=== PATIENT | female | born 1955 ===

== ENCOUNTER → 2025-01-16 | Day surgery (SDC) | payer OTHER ==
[~2025-01-16] VITALS: Ht 172.7 cm; Wt 181.4 kg
[~2025-01-16] MED LIST: Balanced Salt Solution 500 ML OPH SCH; CYMBALTA60 MG PO; Cefuroxime Sodium 5 MG in BALANCED SALT IRRIG SOLN NO.2 0.5 ML,SYRINGE, DISPOSABLE, 10 ... IO SCH; Coumadin10 MG PO; Coumadin5 MG PO; FARXIGA10 M1 PO; GLYBURIDE5 MG PO; JENTADUETO 2.51 EAC2 PO; LIPITOR20 MG PO; Midazolam Hydrochloride 2 MG/2 ML VIAL IV ONE; OFLOXACIN 0.3% 5 ML BOTTLE ONE; OFLOXACIN 0.3% 5 ML BOTTLE OPH SCH; PHENYLEPHRINE/KETOROLAC 4 ML in Balanced Salt Solution 500 ML OPH SCH; POVIDONE IODINE 5% OPHTHALMIC 30 ML BOTTLE OPH ONE; POVIDONE IODINE 5% OPHTHALMIC 30 ML BOTTLE OPH SCH; Phenylephrine Hydrochloride 2 ML BOT OPH ONE; Phenylephrine Hydrochloride 2 ML BOT OPH SCH; Proparacaine Hydrochloride 15 ML BOT OPH ONE; Proparacaine Hydrochloride 15 ML BOT OPH SCH; SODIUM CHLORIDE 0.9% 1,000 ML IV SCH; TROPICAMIDE 3 ML BOT OPH ONE; TROPICAMIDE 3 ML BOT OPH SCH; Tetracaine Hydrochloride 0.5% 4 ML BOT OPH ONE; Tetracaine Hydrochloride 0.5% 4 ML BOT OPH SCH; ZESTRIL20 MG PO; prednisoLONE acetate 1% OPHTHALMIC 5 ML BOT ONE; prednisoLONE acetate 1% OPHTHALMIC 5 ML BOT OPH SCH
[2025-01-16 09:49] VITALS: BP 122/53
[2025-01-16 11:00] VITALS: BP 121/91
[2025-01-16 11:30] VITALS: BP 116/77
== END | disposition home or self-care (01) ==
LOC: SDC 01-11 09:30
PROVIDERS: ATTEND Ophthalmology
DX: E11.36 Type 2 diabetes mellitus with diabetic cataract (principal); H25.812 Combined forms of age-related cataract, left eye; I10 Essential (primary) hypertension; E78.00 Pure hypercholesterolemia, unspecified; F41.9 Anxiety disorder, unspecified; F32.A Depression, unspecified; Z98.890 Other specified postprocedural states; Z79.01 Long term (current) use of anticoagulants; Z79.899 Other long term (current) drug therapy

== ENCOUNTER → 2025-02-13 | Day surgery (SDC) | payer OTHER ==
[~2025-02-13] VITALS: Ht 172.7 cm; Wt 181.4 kg
[~2025-02-13] MED LIST changes: +ATROPINE SULFATE 1% 2 ML BOTTLE ONE; +ATROPINE SULFATE 1% 2 ML BOTTLE OPH SCH; +Cyclopentolate Hydrochloride 1% 2 ML BOTTLE OPH ONE; +Cyclopentolate Hydrochloride 1% 2 ML BOTTLE OPH SCH; -POVIDONE IODINE 5% OPHTHALMIC 30 ML BOTTLE OPH ONE
[2025-02-13 06:54] VITALS: BP 115/49
[2025-02-13 08:12] VITALS: BP 103/48
[2025-02-13 08:29] VITALS: BP 110/50
[2025-02-13 08:42] VITALS: BP 104/47
== END | disposition home or self-care (01) ==
LOC: SDC 02-11 08:00
PROVIDERS: ATTEND Ophthalmology
DX: E11.36 Type 2 diabetes mellitus with diabetic cataract (principal); H25.11 Age-related nuclear cataract, right eye; I10 Essential (primary) hypertension; E66.9 Obesity, unspecified; Z79.01 Long term (current) use of anticoagulants; Z79.899 Other long term (current) drug therapy